=== PATIENT | female | born 1955 | race Caucasian/White ===

== ENCOUNTER 2018-06-07 19:26 | Emergency (ER) | payer OTHER ==
[2018-06-07] MEDS ORDERED: Sodium Chloride 0.9% 1,000 ML ONE (19:46)
[2018-06-07] MEDS ORDERED: Ondansetron HCl/PF 4 MG/2 ML Vial ONE (19:47)
--- NOTE | 2018-06-07 20:23 | RAD ---
AP VIEW OF THE CHEST 06/07/18 INDICATION: History of a piece of broccoli stuck in the esophagus for 30 minutes. COMPARISON: None. FINDINGS: Lungs are clear. Cardiomediastinal silhouette is within normal limits. No acute osseous abnormality. IMPRESSION: No acute cardiopulmonary abnormality. POS: [facility]
== END 2018-06-07 21:07 | disposition home or self-care (01) ==
LOC: NAV ERS 19:26
DX: K22.2 Esophageal obstruction (principal); F32.9 Major depressive disorder, single episode, unspecified
CPT/HCPCS: 71045; 96361; 96374; 96375; J1610; J2405; J7050